=== PATIENT | male | born 1940 | race Caucasian/White ===

== ENCOUNTER → 2016-08-18 | Outpatient (CLI) | payer MEDICARE, BC ==
[~2016-08-18] MED LIST: 8 HOUR PAIN RE650 M1 PO; AMARYL2 MG PO; ASPIRIN (CHILDR81 MG PO; ASPIRIN325 MG PO; CINNAMON500 MG PO; CLARITIN10 MG PO; COLACE100 MG PO; COZAAR50 MG PO; DILAUDID 2MG(HYD2 MG PO; FLONASE 50 MCG/16 GM NOSE; GLUCOPHAGE500 MG PO; NASONEX NASAL S17 GM NOSE; NIACIN CONTROL500 MG PO; PRILOSEC20 MG PO; PROVENTIL OR V6.7 GM INH; THERAGRAN-M1 TAB PO; ULTRAM50 MG PO; VALIUM5 MG PO; XARELTO10 MG PO; ZOCOR40 MG PO; ZYLOPRIM300 MG PO
== END | disposition disaster alternative care site (69) ==
LOC: GRAD 07:38
DX: M25.511 Pain in right shoulder (principal); S43.431A Superior glenoid labrum lesion of right shoulder, initial encounter; M19.011 Primary osteoarthritis, right shoulder; M25.411 Effusion, right shoulder